=== PATIENT | female | born 1965 | race Caucasian/White ===

== ENCOUNTER 2020-08-23 12:08 | Inpatient (IN) | payer BC, MEDICARE ==
[~2020-08-23] VITALS: Ht 160 cm; Wt 76.7 kg
[2020-08-23 12:49] LABS: Hematocrit 43.9 % (33.0-51.0); Hemoglobin 14.8 g/dL (11.5-16.0); Mean Corpuscular HGB 28.8 pg (26.0-34.0); Mean Corpuscular HGB Conc 33.7 g/dL (31.5-36.5); Mean Corpuscular Volume 85 fL (80-100); Mean Platelet Volume 10.4 fL (9.1-12.4); Platelet Count 108 K/mm3 (150-400); RDW Standard Deviation 43.9 fL (35.1-46.3); Red Blood Cell Count 5.14 M/mm3 (3.80-5.20); White Blood Cell Count 5.17 K/mm3 (4.00-11.30)
[2020-08-23 13:04] LABS: Albumin/Globulin Ratio 0.7 (0.8-1.8); Bilirubin, Total 0.3 mg/dL (0.1-1.0); Bun/Creatinine Ratio 21.9 (12.0-20.0); Calcium, Blood 8.7 mg/dL (8.5-10.1); Creatinine, Blood 2.6 mg/dL (0.40-1.00); Globulin, Blood 4.2 g/dL (2.2-4.0); Potassium, Blood 3.1 mmol/L (3.5-5.5); Total Protein, Blood 7.2 g/dL (6.4-8.2)
[2020-08-23 13:09] LABS: BAND PERCENT MAN 11 % (0-8); BASOPHILS PERCENT MAN 0 % (0-2); EOSINOPHILS PERCENT MAN 4 % (0-6); LYMPHOCYTES ABSOLUTE MAN 0.51 K/mm3 (0.84-5.20); LYMPHOCYTES PERCENT MAN 10 % (21-46); MONOCYTES ABSOLUTE MAN 0.67 K/mm3 (0.16-1.47); MONOCYTES PERCENT MAN 13 % (4-13); NEUTROPHILS ABSOLUTE MAN 3.77 K/mm3 (1.96-9.15); SEG NEUTROPHILS PERCENT MAN 62 % (41-73); TOTAL CELLS COUNTED 100
[2020-08-23 13:21] LABS: Source, Urine Clean Catch
[2020-08-23 13:39] LABS: Appearance, Urine Hazy (Clear); Bilirubin, Urine Neg (Neg); Blood, Urine 1+ (Neg); Color, Urine Yellow (P-Yellow); Glucose Qualitative, Urine Neg (Neg); Ketones, Urine Neg (Neg); Leukocyte Esterase, Urine 1+ (Neg); Nitrite, Urine Neg (Neg); Protein, Urine 2+ (Neg); Urobilinogen, Urine NORM (Normal)
[2020-08-23 13:45] LABS: Bacteria Few /hpf; Red Blood Cells, Urine 0-2 /hpf (0-2); Squamous Epithelial Cells Mod /hpf (Few); White Blood Cells, Urine 25-50 /hpf (0-5)
[2020-08-23 14:09] LABS: Influenza A, PCR Negative (NEGATIVE); Influenza B, PCR Negative (NEGATIVE); Resp Syncytial Virus, PCR Negative (NEGATIVE); SARS-Cov-2 (COVID-19) PCR, MMC Negative (NEGATIVE)
[2020-08-23] MEDS ORDERED: CARVEDILOL12.5 MG PO (15:23)
[2020-08-23] MEDS ORDERED: AMLODIPINE BES2.5 MG PO (15:23)
[2020-08-23] MEDS ORDERED: LOSARTAN POTAS100 M1 PO (15:24)
--- NOTE | 2020-08-23 18:00 | NUR ---
PT ARRIVED AT 1730 VIA CART AND IS AMBULATING WELL. PT DENIES ANY PAIN OR NAUSEA AT THIS TIME. PT IS AOX4 AND COOPERATIVE OF CARE. CALL LIGHT IS WITHIN REACH WILL CONITNUE TO MONITOR.
[2020-08-23] MEDS ORDERED: VENL75ER PO (18:47)
--- NOTE | 2020-08-23 19:20 | NUR ---
ASSUMED CARE RECEIVED REPORT FROM CROW BRIDGES. ASSUMED CARE OF PT. RESTING COMFORTABLY, NO S/S ACUTE DISTRESS NOTED, RESPS E/U. DENIES NEEDS. CALL LIGHT, POSSESSIONS IN REACH, BED IN LOW POSITION . WCTM.
--- NOTE | 2020-08-23 23:45 | NUR ---
SPOKE TO DR. TOLBERT REGARDING PT'S EXISTING HEPARIN ORDER FOR DVT PROPHYLAXIS AND CONCERNS D/T PT HX COLITIS AND REPORTS OF BLOOD IN STOOLS. ALSO INFORMED OF USE OF ABX AND NEED FOR TKO FLUIDS. ORDERS RECEIVED. CONTINUE TO MONITOR.
[2020-08-24 05:14] LABS: BASOPHILS ABSOLUTE AUTO 0.02 K/mm3 (0.00-0.23); BASOPHILS PERCENT AUTO 1 % (0-2); EOSINOPHILS ABSOLUTE AUTO 0.07 K/mm3 (0.00-0.68); EOSINOPHILS PERCENT AUTO 2 % (0-6); Hematocrit 37.8 % (33.0-51.0); Hemoglobin 12.8 g/dL (11.5-16.0); IMMATURE GRAN ABSOLUTE AUTO 0.05 K/mm3 (0.00-0.10); IMMATURE GRAN PERCENT AUTO 2 % (0-1); LYMPHOCYTES ABSOLUTE AUTO 0.46 K/mm3 (0.84-5.20); LYMPHOCYTES PERCENT AUTO 14 % (21-46); MONOCYTES ABSOLUTE AUTO 0.54 K/mm3 (0.16-1.47); MONOCYTES PERCENT AUTO 16 % (4-13); Mean Corpuscular HGB Conc 33.9 g/dL (31.5-36.5); Mean Corpuscular Volume 86 fL (80-100); Mean Platelet Volume 10.7 fL (9.1-12.4); NEUTROPHILS ABSOLUTE AUTO 2.18 K/mm3 (1.96-9.15); NEUTROPHILS PERCENT AUTO 66 % (41-73); Platelet Count 88 K/mm3 (150-400); RDW Coefficient Variation 13.9 % (11.7-14.2); RDW Standard Deviation 43.4 fL (35.1-46.3); Red Blood Cell Count 4.42 M/mm3 (3.80-5.20); White Blood Cell Count 3.32 K/mm3 (4.00-11.30)
[2020-08-24 05:35] LABS: Alanine Aminotransfer (ALT/SGP 19 U/L (12-78); Albumin, Blood 2.6 g/dL (3.4-5.0); Albumin/Globulin Ratio 0.7 (0.8-1.8); Alk Phos 78 U/L (50-136); Anion Gap 7 mmol/L (6-16); Aspartate Aminotrans (AST/SGOT 20 U/L (12-37); Bilirubin, Total 0.4 mg/dL (0.1-1.0); Blood Urea Nitrogen 32 mg/dL (8-24); Bun/Creatinine Ratio 32.3 (12.0-20.0); CO2, Blood 19 mmol/L (21-32); Calcium, Blood 8.1 mg/dL (8.5-10.1); Chloride, Blood 113 mmol/L (98-108); Creatinine, Blood 0.99 mg/dL (0.40-1.00); Globulin, Blood 3.5 g/dL (2.2-4.0); Glomerular Filtration Rate >60 (60-); Glucose, Blood 101 mg/dL (70-99); Potassium, Blood 3.5 mmol/L (3.5-5.5); Sodium, Blood 139 mmol/L (136-145); Total Protein, Blood 6.1 g/dL (6.4-8.2)
--- NOTE | 2020-08-24 05:45 | NUR ---
SPOKE TO DR. EDWARDS REGARDING PT'S MULTIPLE EPISODES OF DIARRHEA. ORDERS RECEIVED. CONTINUE TO MONITOR.
--- NOTE | 2020-08-24 07:05 | NUR ---
SHIFT SUMMARY PT RESTING AT THIS TIME, NO S/S ACUTE DISTRESS NOTED, WAS MONITORED EVERY 1-2 HOURS WITH NEEDS MET. VS REVIEWED, WNL. PAIN AND N/V MANAGED WITH MEDS PER EMAR, PT REPORTS IMPROVED NAUSEA; ABD PAIN ONGOING BUT RELIEVED FOR SHORT PERIODS OF TIME. ENCOURAGED USE OF HEAT PACK, PT STATES THIS HELPS. TOLERATED CLEAR LIQUID DIET FAIRLY, HAD A FEW EPISODES OF BILE-COLORED EMESIS, RELIEVED BY ANTIEMETICS ORDERED. GI PANEL PENDING AT THIS TIME. PT STATES GARCES IS IMPROVING. ASKING FOR MEDS FOR ABD PAIN. CALL LIGHT, POSSESSIONS IN REACH, BED IN LOW POSITION, REPORT GIVEN TO CROW KOVACS.
[2020-08-24 12:07] LABS: Adenovirus F 40/41 Not Detected (NOT DETECT); Astrovirus Not Detected (NOT DETECT); Campylobacter Sp Detected (NOT DETECT); Cryptosporidium Not Detected (NOT DETECT); Cyclospora Cayetanensis Not Detected (NOT DETECT); E. Coli O157 Not Detected (NOT DETECT); Entamoeba Histolytica Not Detected (NOT DETECT); Enteroaggregative E. coli-EAEC Not Detected (NOT DETECT); Enteropathogenic E. coli-EPEC Not Detected (NOT DETECT); Enterotoxigenic E. coli-ETEC Not Detected (NOT DETECT); Giardia Lamblia Not Detected (NOT DETECT); Norovirus GI/GII Not Detected (NOT DETECT); Plesiomonas Shigelloides Not Detected (NOT DETECT); Rotavirus A Not Detected (NOT DETECT); Salmonella Sp Not Detected (NOT DETECT); Sapovirus Not Detected (NOT DETECT); Shiga Toxin-prod E. coli-STEC Not Detected (NOT DETECT); Shigella/Enteroin E. coli-EIEC Not Detected (NOT DETECT); Vibrio Cholerae Not Detected (NOT DETECT); Vibrio Sp Not Detected (NOT DETECT); Yersinia Enterocolitica Not Detected (NOT DETECT)
--- NOTE | 2020-08-24 18:02 | NUR ---
SHIFT SUMMARY PT A&O UP INDEPENDENTLY. HAD A SHOWER THIS EVENING AND WENT OUTSIDE X1 THIS SHIFT. PT C/O NAUSEA AND PAIN T/O SHIFT-MEDICATED PER RX, REPORTS BETTER PAIN CONTROL WITH CURRENT TREATMENT PLAN. TOLERATING CLEAR LIQUID DIET WELL- NO EMESIS THIS SHIFT. NO ACUTE CHANGES. PLAN: CONTINUE CURRENT TREATMENT PLAN AND PT WILL RETURN HOME WHEN READY FOR DISCHARGE.
--- NOTE | 2020-08-25 03:59 | NUR ---
assumed care of PT 0230 after report from Darren MARIA.
--- NOTE | 2020-08-25 05:02 | NUR ---
54year old Female with hx of gastric sleeve 2018 & hx of diverticulitis with hx of colon scraping per PT has positive camplobactor test with several week hx of worsening abd pain & diarrhea. She rates pain at 10/10 upper epigastric pain with mild helpful effect of oral dilaudid 1 mg Q 2 hr prn. She complain s of nausea & continued loose stool. Continent of bowel & bladder. HX of Hep C with tx completed in past. On clear liquid diet appetite poor. Passing large amts flatus & belching this AM.
--- NOTE | 2020-08-25 18:41 | NUR ---
SHIFT SUMMARY: NO ACUTE CHANGES TO REPORT THIS SHIFT. PT A&O; CALM AND COOPERATIVE WITH CARE. MEDICATED FOR ABD PAIN PER EMAR; MEDICATED FOR NAUSEA PER EMAR. SIMETHICONE STARTED THIS SHIFT; PT REPORTS DECREASE IN PAIN & BLOATING. IV ABX CHANGED TO PO; GENTLE REHYDRATION CONTINUING. WCTM.
--- NOTE | 2020-08-26 06:41 | NUR ---
Nausea finally about 90% under control with Compazine. She did receive one IV dose of Zithromax as she immediately vomited up her AM dose yesterday per report from the day RN. TODAY'S ORAL DOSE WILL NEED TO BE STAGGERED PER THE PHARMACY'S RECOMMENDATION. Patient required 2mg dilaudid twice overnight for abd cramping and pain
--- NOTE | 2020-08-26 07:20 | NUR ---
Patient slept well after adjusting to Compazine for nausea instead of Zofran which didn't appear to work for her and she was unable to take her oral medications yesterday. Pain wontrolled with two separate doses of 2mg hydromorphone overnight. A&OX4 pleasant and cooperative with care. Still had several bouts of diarrhea last night
--- NOTE | 2020-08-26 17:59 | NUR ---
SHIFT SUMMARY: NO ACUTE EVENTS THIS SHIFT. A&O X 4, PLEASANT AND COOPERATIVE. STATED THAT HER ABD PAIN, BLOATING, AND DIARRHEA ARE IMPROVING. MEDICATED FOR PAIN AND NAUSEA ONCE EACH FOR ENTIRE SHIFT. AMBULATING INDEPENDENTLY. DIET CHANGED TO SOFT BITES, TOLERATING SO FAR. PLAN IS FOR POSSIBLE D/C HOME TOMORROW. GAVE PATIENT NEW PATIENT PACKET FOR [employer] SO SHE CAN GET PCP AT D/C.
--- NOTE | 2020-08-27 06:55 | NUR ---
SHIFT SUMMARY PATIENT ALERT AND ORIENTED. MEDICATED ONCE PER EMAR FOR PAIN. PATIENT ABLE TO SLEEP FAIRLY WELL OVERNIGHT. PATIENT REPORTED PAIN WHEN POWERGLIDE WAS FLUSHED AND WHEN SHE WAS AT REST. POWERGLIDE REMOVED. BED IN LOWEST POSITION WITH WHEELS LOCKED. CALL LIGHT WITHIN REACH. REPORT GIVEN TO ONCOMING RN.
[2020-08-27] MEDS ORDERED: AZIT500 PO (11:54)
[2020-08-27] MEDS ORDERED: ACET325 PO (11:54)
[2020-08-27] MEDS ORDERED: PROC5 PO (11:55)
[2020-08-27] MEDS ORDERED: SIME80CH PO (11:57)
--- NOTE | 2020-08-27 13:12 | NUR ---
PATIENT DISCHARGED TO HOME ACCOMPANIED BY HER MOTHER. NO IV SITE IN PLACE. WAS GIVEN D/C INSTRUCTIONS AND NEW PATIENT PACKET FOR [employer] WITH INSTRUCTIONS TO FILL THEM OUT PRIOR TO F/U APPT NEXT WEEK; VERBALIZED UNDERSTANDING OF INSTRUCTIONS. PT TAKEN DOWNSTAIRS VIA W/C TO MEET HER RIDE AT 1300. NO PERSONAL BELONGINGS LEFT BEHIND IN ROOM.
== END 2020-08-27 12:59 | disposition home or self-care (01) | DRG 372 ==
LOC: ER 12:08 → MEDS 12:09
PROVIDERS: Emergency Medicine; Family Medicine; Physician Assistant; ADMIT Internal Medicine
DX: A04.5 Campylobacter enteritis (principal); N17.9 Acute kidney failure, unspecified; E86.0 Dehydration; F32.9 Major depressive disorder, single episode, unspecified; Z20.828 Contact with and (suspected) exposure to other viral communicable diseases; B19.20 Unspecified viral hepatitis C without hepatic coma; I10 Essential (primary) hypertension; Z98.84 Bariatric surgery status; K74.60 Unspecified cirrhosis of liver; E11.9 Type 2 diabetes mellitus without complications; F11.11 Opioid abuse, in remission; E87.6 Hypokalemia; F17.210 Nicotine dependence, cigarettes, uncomplicated
CPT/HCPCS: 0097U; 0241U; 36415; 74176; 80053; 81001; 83690; 85025; 87086; 96365; 96366; 96367; 96372; 96375; 96376; 99285-25; A9270; C9113; G0378; J0456; J0696; J0780; J1170; J1644; J2405; J3480; J7030; J7050; J7120; Q0163

== ENCOUNTER → 2020-11-04 | Outpatient (CLI) | payer SELFPAY ==
[~2020-11-04] MED LIST: ACET325 PO; AMLODIPINE BES2.5 MG PO; AZIT500 PO; CARVEDILOL12.5 MG PO; LOSARTAN POTAS100 M1 PO; PROC5 PO; SIME80CH PO; VENL75ER PO
== END | disposition home or self-care (01) ==
LOC: LAB EV 12:00 → LAB SHORT 12:00
DX: L03.012 Cellulitis of left finger (principal)
CPT/HCPCS: 87070; 87075; 87077; 87147; 87186; 87205

== ENCOUNTER 2021-03-21 15:56 | Emergency (ER) | payer OTHER ==
[~2021-03-21] VITALS: Ht 157.5 cm; Wt 65.3 kg
[2021-03-21 16:36] LABS: BASOPHILS ABSOLUTE AUTO 0.02 K/mm3 (0.00-0.23); BASOPHILS PERCENT AUTO 1 % (0-2); EOSINOPHILS ABSOLUTE AUTO 0.21 K/mm3 (0.00-0.68); EOSINOPHILS PERCENT AUTO 10 % (0-6); Hemoglobin 13.9 g/dL (11.5-16.0); IMMATURE GRAN PERCENT AUTO 0 % (0-1); LYMPHOCYTES ABSOLUTE AUTO 0.82 K/mm3 (0.84-5.20); LYMPHOCYTES PERCENT AUTO 38 % (21-46); MONOCYTES ABSOLUTE AUTO 0.21 K/mm3 (0.16-1.47); MONOCYTES PERCENT AUTO 10 % (4-13); Mean Corpuscular HGB 28.6 pg (26.0-34.0); Mean Corpuscular HGB Conc 33.9 g/dL (31.5-36.5); Mean Corpuscular Volume 84 fL (80-100); Mean Platelet Volume 9.6 fL (9.1-12.4); NEUTROPHILS ABSOLUTE AUTO 0.92 K/mm3 (1.96-9.15); NEUTROPHILS PERCENT AUTO 42 % (41-73); Platelet Count 110 K/mm3 (150-400); RDW Coefficient Variation 13.2 % (11.7-14.2); RDW Standard Deviation 41.3 fL (35.1-46.3); Red Blood Cell Count 4.86 M/mm3 (3.80-5.20); White Blood Cell Count 2.18 K/mm3 (4.00-11.30)
[2021-03-21 16:46] LABS: Alanine Aminotransfer (ALT/SGP 47 U/L (12-78); Albumin, Blood 3.4 g/dL (3.4-5.0); Albumin/Globulin Ratio 0.9 (0.8-1.8); Alk Phos 101 U/L (50-136); Anion Gap 5 mmol/L (6-16); Aspartate Aminotrans (AST/SGOT 40 U/L (12-37); Bilirubin, Total 0.3 mg/dL (0.1-1.0); Blood Urea Nitrogen 16 mg/dL (8-24); Bun/Creatinine Ratio 21.8 (12.0-20.0); CO2, Blood 25 mmol/L (21-32); Calcium, Blood 8.6 mg/dL (8.5-10.1); Chloride, Blood 113 mmol/L (98-108); Creatinine, Blood 0.73 mg/dL (0.40-1.00); Globulin, Blood 3.6 g/dL (2.2-4.0); Glomerular Filtration Rate >60 (60-); Glucose, Blood 82 mg/dL (70-99); Potassium, Blood 3.4 mmol/L (3.5-5.5); Sodium, Blood 143 mmol/L (136-145)
== END 2021-03-21 17:27 | disposition home or self-care (01) ==
LOC: ER 15:56
PROVIDERS: Student in an Organized Health Care Education/Training Program
DX: U07.1 COVID-19 (principal); I10 Essential (primary) hypertension; E11.9 Type 2 diabetes mellitus without complications; F17.210 Nicotine dependence, cigarettes, uncomplicated; Z88.0 Allergy status to penicillin; Z88.5 Allergy status to narcotic agent
CPT/HCPCS: 36415; 71045; 80053; 85025; 99284-25

== ENCOUNTER 2022-01-17 13:57 | Emergency (ER) | payer MEDICARE, OTHER ==
[~2022-01-17] VITALS: Ht 160 cm; Wt 65.8 kg
[2022-01-17 14:35] LABS: BASOPHILS ABSOLUTE AUTO 0.02 K/mm3 (0.00-0.23); BASOPHILS PERCENT AUTO 2 % (0-2); EOSINOPHILS ABSOLUTE AUTO 0.09 K/mm3 (0.00-0.68); EOSINOPHILS PERCENT AUTO 7 % (0-6); Hematocrit 36.5 % (33.0-51.0); Hemoglobin 12.2 g/dL (11.5-16.0); Mean Corpuscular HGB 28.3 pg (26.0-34.0); Mean Corpuscular HGB Conc 33.4 g/dL (31.5-36.5); Mean Corpuscular Volume 85 fL (80-100); Mean Platelet Volume 9.9 fL (9.1-12.4); Platelet Count 90 K/mm3 (150-400); RDW Standard Deviation 43.4 fL (35.1-46.3); Red Blood Cell Count 4.31 M/mm3 (3.80-5.20); White Blood Cell Count 1.24 K/mm3 (4.00-11.30)
[2022-01-17 14:38] LABS: IMMATURE GRAN PERCENT AUTO 0 % (0-1); LYMPHOCYTES ABSOLUTE AUTO 0.42 K/mm3 (0.84-5.20); LYMPHOCYTES PERCENT AUTO 34 % (21-46); MONOCYTES ABSOLUTE AUTO 0.17 K/mm3 (0.16-1.47); MONOCYTES PERCENT AUTO 14 % (4-13); NEUTROPHILS ABSOLUTE AUTO 0.54 K/mm3 (1.96-9.15); NEUTROPHILS PERCENT AUTO 44 % (41-73)
[2022-01-17 14:52] LABS: Albumin, Blood 3.3 g/dL (3.4-5.0); Bilirubin, Total 0.4 mg/dL (0.1-1.0); Bun/Creatinine Ratio 23.8 (12.0-20.0); Calcium, Blood 8.4 mg/dL (8.5-10.1); Creatinine, Blood 0.67 mg/dL (0.40-1.00); Globulin, Blood 3.3 g/dL (2.2-4.0); Potassium, Blood 3.4 mmol/L (3.5-5.5); Total Protein, Blood 6.6 g/dL (6.4-8.2)
== END 2022-01-17 17:22 | disposition left against medical advice (07) ==
LOC: ER 13:57
PROVIDERS: Physician Assistant
DX: R07.9 Chest pain, unspecified (principal); Z53.21 Procedure and treatment not carried out due to patient leaving prior to being seen by health care provider
CPT/HCPCS: 36415; 71045; 80053; 84484; 85025; 93005; 93010

== ENCOUNTER → 2022-06-02 | Outpatient (CLI) | payer MEDICARE, OTHER | END | disposition home or self-care (01) | LOC: LAB SHORT 13:45 → LAB 13:45 | DX: Z11.52 Encounter for screening for COVID-19 (principal) | CPT/HCPCS: 87081; 87147 ==

== ENCOUNTER 2022-07-21 13:47 | Emergency (ER) | payer MEDICARE, OTHER ==
[~2022-07-21] VITALS: Ht 160 cm; Wt 72.6 kg
[2022-07-21] MEDS ORDERED: LOSA25 PO (14:00)
[2022-07-21] MEDS ORDERED: AMLO5 (14:00)
[2022-07-21] MEDS ORDERED: CARV3.125 (14:01)
[2022-07-21] MEDS ORDERED: HYDCHL25 (14:01)
[2022-07-21] MEDS ORDERED: Cleocin HCl150 MG PO (15:55)
== END 2022-07-21 16:27 | disposition left against medical advice (07) ==
LOC: ER 13:47
DX: A46 Erysipelas (principal); I10 Essential (primary) hypertension; E11.9 Type 2 diabetes mellitus without complications; F17.200 Nicotine dependence, unspecified, uncomplicated; Z88.0 Allergy status to penicillin; Z88.5 Allergy status to narcotic agent; Z79.899 Other long term (current) drug therapy
CPT/HCPCS: A9270; J1100; J1200